=== PATIENT | male | born 1965 | race Two or more races ===

== ENCOUNTER 2018-06-25 10:15 | Day surgery (SDC) | payer OTHER ==
[2018-06-21 14:11] VITALS: BMI 32.1
[2018-06-25 11:11] VITALS: TEMP 98.7
[2018-06-25] MEDS ORDERED: MIDAZOLAM HCL 2 MG/2 ML SINGLE DOSE VIAL ONE ×2 (11:49→11:55)
[2018-06-25] MEDS ORDERED: DEXAMETHASONE SOD PHOSPHATE 4 MG/1 ML VIAL ONE (11:52)
--- NOTE | 2018-06-25 13:34 | OP ---
Operative Note - Note: Operative Date: 06/25/18 Pre-Operative Diagnosis: Left renal stone Operation: Left ESWL Findings: 8 mm proximal Left ureter stone Post-Operative Diagnosis: Same as Pre-op Surgeon: Germán Keyes Anesthesia: Fractional Estimated Blood Loss (mls): 0 Operative Report Dictated: Yes
[2018-06-25 14:34] VITALS: BP 134/74; PULSE 87
[2018-06-25] MEDS ORDERED: oxyCODONE HCL 5 MG TABLET PO PRN (15:54)
[2018-06-25] MEDS ORDERED: ACETAMINOPHEN 325 MG TABLET (FP) PO PRN (15:54)
[2018-06-25] MEDS ORDERED: ONDANSETRON 4 MG/2 ML VIAL IVPUSH PRN (15:54)
[2018-06-25] MEDS ORDERED: LACTATED RINGERS SOLUTION 1,000 ML IV SCH (16:00)
--- NOTE | 2018-06-25 21:59 | OP ---
DATE OF OPERATION: 06/25/2018 PREOPERATIVE DIAGNOSIS: Left proximal ureteral stone. POSTOPERATIVE DIAGNOSIS: Left proximal ureteral stone. PROCEDURE: Left extracorporeal shock wave lithotripsy. ATTENDING: Marcia Barrios MD ANESTHESIA: General. DESCRIPTION OF OPERATION: The patient was brought in the operating room and placed in supine position on the operating room table. Ultrasonography and fluoroscopy were performed. An 8-mm proximal left ureteral stone was noted. The stone measured 8 mm. Anesthesia and preoperative antibiotics were then administered. Next, 3000 impulses at 17 joules of power were administered to the stone under real-time ultrasonography and fluoroscopy. There was fragmentation of the stone under real-time ultrasonography and fluoroscopy. No complications were noted. The patient has an indwelling left ureteral stent. The patient tolerated the procedure very well, and his disposition was to the recovery room. The patient will be followed up for possible removal of his left ureteral stent. There were no complications noted. MARCIA BARRIOS M.D. [id number]
== END 2018-06-25 14:36 | disposition home or self-care (01) ==
LOC: JASU-SURG 10:15
PROVIDERS: ATTEND Urology
PROC: 0TF7XZZ Fragmentation in Left Ureter, External Approach (ICD-10-PCS; principal; 2018-06-25 11:45)
DX: N20.1 Calculus of ureter (principal)

== ENCOUNTER 2018-07-09 07:33 | Day surgery (SDC) | payer OTHER ==
[2018-07-06 15:22] VITALS: BMI 34.8
[2018-07-09] MEDS ORDERED: PROPOFOL 20 ML ONE ×2 (09:54)
[2018-07-09] MEDS ORDERED: MIDAZOLAM HCL 2 MG/2 ML SINGLE DOSE VIAL ONE (09:55)
[2018-07-09] MEDS ORDERED: DEXAMETHASONE SOD PHOSPHATE 4 MG/1 ML VIAL ONE (10:21)
[2018-07-09] MEDS ORDERED: IOHEXOL 300 MG/ML INFUS..BTL IV ONE (10:30)
[2018-07-09] MEDS ORDERED: KETOROLAC TROMETHAMINE 30 MG/1 ML VIAL ONE (10:37)
--- NOTE | 2018-07-09 11:01 | OP ---
Operative Note - Note: Operative Date: 07/09/18 Pre-Operative Diagnosis: left ureteral stones Operation: cystoscopy/left retrograde pyelogram/left ureteroscopic stone basketing/left ureteral stent exchange Findings: multiple left ureteral stones Post-Operative Diagnosis: Same as Pre-op Surgeon: Germán Keyes Anesthesia: General Specimens Removed: stone/left ureteral stent Drains & Tubes with Location: 03/27 left ureteral stent Operative Report Dictated: Yes
[2018-07-09] MEDS ORDERED: oxyCODONE HCL 5 MG TABLET PO PRN (11:17)
[2018-07-09] MEDS ORDERED: ONDANSETRON 4 MG/2 ML VIAL IVPUSH PRN (11:17)
[2018-07-09] MEDS ORDERED: LACTATED RINGERS SOLUTION 1,000 ML IV SCH (11:30)
[2018-07-09 13:11] VITALS: BP 148/88; PULSE 88; TEMP 97.5
--- NOTE | 2018-07-10 07:12 | OP ---
DATE OF OPERATION: 07/09/2018 PREOPERATIVE DIAGNOSIS: Left ureteral stone, status post extracorporeal shock wave lithotripsy. POSTOPERATIVE DIAGNOSIS: Left ureteral stone, status post extracorporeal shock wave lithotripsy. PROCEDURE PERFORMED: Cystoscopy, left retrograde pyelogram, left ureteroscopic stone basketing, left ureteral stent exchange. SURGEON: Marcia Barrios MD ANESTHESIA: General. INDICATIONS: The patient has a history of an impacted left ureteral stone. The stone is located just distal to the ureteropelvic junction. The patient is status post extracorporeal shock wave lithotripsy. Shock wave lithotripsy showed fragmentation of the stone. However, due to the large size of the stone, it was decided to remove the stent and to perform a retrograde pyelogram to ensure there was no further obstruction of the left kidney. The stone measured 8 to 10 mm on all studies. DESCRIPTION OF PROCEDURE: The patient was brought to the operating room and placed in the supine position on the operating room table. He was given anesthesia and preoperative antibiotics. He was then placed in the dorsal lithotomy position and prepped and draped in the usual sterile manner. Cystoscopy was performed. No evidence of stones was noted within the bladder. The left ureteral stent is seen and is removed under cystoscopic visualization, with the grasping forceps. At this point, a wire was passed proximally up towards the kidney. A retrograde pyelogram is then performed, which shows a large filling defect, consistent with an impacted stone. Ureteroscopy was taken to the level of the impacted stone. A stone fragment is basketed and sent for analysis. At this point, a 2nd wire is placed in order to gain position to evaluate further lithotomy utilizing the holmium laser. Placing the 2nd wire disimpacted the stone. The stone was lodged into the kidney. The stone appeared fragmented. At this point, it was decided to leave the patient with the stent. The patient will be able to have the stent removed in the office setting without risk of acute obstruction. The residual fragments should pass without significant morbidity. The patient tolerated the procedure very well. DISPOSITION: The patient was sent to the recovery room. A 6-Persian 26-cm stent was placed utilizing the Seldinger technique, after the ureteroscope was removed, in order to allow for healing of the edematous proximal ureter. MARCIA BARRIOS M.D. /[id number]
--- NOTE | 2018-07-13 14:25 | PATH ---
Surgical Pathology Report Patient Name: WILD HOPPER Med. Rec. #: [id number] /Age/Gender: 1965 (Age: 52) / M Account: [id number] Location: [facility] Taken: 07/09/2018 Received: 07/09/2018 Reported: 07/11/2018 Physicians: Germán Keyes Specimen(s) Received A: LEFT URETERAL STENT B: LEFT URETERAL CALCULI Clinical History Calculus of ureter Final Diagnosis A. URETERAL STENT, LEFT, REMOVAL: URETERAL STENT. MACROSCOPIC DIAGNOSIS. B. URETERAL STONE, LEFT, STONE BASKETING: URETEROLITHIASIS. MACROSCOPIC DIAGNOSIS. Electronically Signed Zuleyma Casillas M.D. Gross Description A. Received fresh labeled "left ureteral stent," is a 36 cm in length blue-green, coiled portion of tubing, consistent with a ureteral stent. No soft tissue is present. No sections are submitted, gross only. B. Received fresh labeled "left ureteral stone," is a 0.3 cm in greatest dimension keith, irregular calculus which is sent for chemical analysis. DL/07/10/2018 saudi/07/10/2018
== END 2018-07-09 13:10 | disposition home or self-care (01) ==
LOC: JASU-SURG 07:33
PROVIDERS: ATTEND Urology
PROC: BT1FYZZ Fluoroscopy of Left Kidney, Ureter and Bladder using Other Contrast (ICD-10-PCS; 2018-07-09)
PROC: 0TC78ZZ Extirpation of Matter from Left Ureter, Via Natural or Artificial Opening Endoscopic (ICD-10-PCS; principal; 2018-07-09 09:00)
PROC: 0T9780Z Drainage of Left Ureter with Drainage Device, Via Natural or Artificial Opening Endoscopic (ICD-10-PCS; 2018-07-09 09:00)
DX: N20.1 Calculus of ureter (principal)
CPT/HCPCS: 36415; 82360; 88300-TC; 94760

== ENCOUNTER 2024-10-11 12:14 | Emergency (ER) | payer OTHER ==
[2024-10-11 12:25] VITALS: BP 136/84; PULSE 89; RESP 18; TEMP 98; BMI 29.9
[2024-10-11] MEDS ORDERED: LIDOCAINE 5% TOPICAL PATCH ONE (13:40)
[2024-10-11] MEDS ORDERED: ACETAMINOPHEN 325 MG TABLET (FP) ONE (13:40)
[2024-10-11] MEDS ORDERED: IBUPROFEN 400 MG TABLET (FP) PO ONE (13:40)
[2024-10-11] MEDS: IBUPROFEN 400 MG TABLET (FP) PO ONE (13:47)
[2024-10-11] MEDS: ACETAMINOPHEN 500 MG TABLET (FP) PO ONE (13:47)
[2024-10-11] MEDS: LIDOCAINE 5% TOPICAL PATCH TP ONE (13:47)
[2024-10-11] MEDS ORDERED: LIDOCAINE PATCH REMOVAL MC ONE (22:00)
== END 2024-10-11 14:35 | disposition home or self-care (01) ==
LOC: FER 12:14
DX: S16.1XXA Strain of muscle, fascia and tendon at neck level, initial encounter (principal); X58.XXXA Exposure to other specified factors, initial encounter
CPT/HCPCS: 99283-25